=== PATIENT | female | born 1935 | race Caucasian/White ===

== ENCOUNTER 2019-01-25 13:33 | Emergency (ER) | payer OTHER, SELFPAY ==
[2019-01-25 13:37] VITALS: BP 122/62; PULSE 75; RESP 18; TEMP 36.3; O2SAT 97
--- NOTE | 2019-01-25 13:49 | DI.RAD.S_ITS ---
PROCEDURE: XR CHEST 1V INDICATIONS: chest pain TECHNIQUE: One view of the chest was acquired. COMPARISON: None. FINDINGS: Surgical changes and devices: None. Lungs and pleura: Lungs are clear. No pleural effusions or pneumothorax. Mediastinum: Mediastinal contours appear normal. Heart size is normal. Bones and chest wall: No suspicious bony lesions. Overlying soft tissues appear unremarkable. IMPRESSION: Mildly reduced inspiratory volume, no definite acute disease. Dictated by: Jan Zavala M.D. on 01/25/2019 at 14:06 Approved by: Jan Zavala M.D. on 01/25/2019 at 14:07
[2019-01-25 14:15] LABS: Add Manual Diff / Slide Review NO; Basophils Absolute Auto 100 /uL (0-100); Basophils Percent Auto 0.5 % (0-2); Eosinophils Absolute Auto 0 /uL (0-450); Eosinophils Percent Auto 0.3 % (2-4); Hematocrit 44.1 % (36-46); Hemoglobin 14.9 g/dL (12.0-16.0); Lymphocytes Absolute Auto 700 /uL (1100-4500); Lymphocytes Percent Auto 6.1 % (25-40); Mean Corpuscular HGB Conc 33.8 % (30-36); Mean Corpuscular Hemoglobin 29.5 PG (26-34); Mean Corpuscular Volume 87.2 fL (80-100); Monocytes Absolute Auto 800 /uL (0-900); Monocytes Percent Auto 7.1 % (3-14); Neutrophils Absolute Auto 10200 /uL (1500-7000); Platelet Count 256 X10^3/uL (150-400); Red Blood Cell Count 5.06 X10^6/uL (4.0-5.2); Red Cell Distribution Width 14.1 % (11.6-14.8); White Blood Cell Count 11.9 X10^3/uL (4.5-11.0)
[2019-01-25 14:24] LABS: INR 0.9 (0.9-1.3); Prothrombin Time 10.5 SECONDS (10.1-12.7)
--- NOTE | 2019-01-25 14:24 | DI.CT.S_ITS ---
PROCEDURE: CT CERVICAL SPINE WO CON INDICATIONS: syncopal episode, fell and hit head TECHNIQUE: Noncontrast 3 mm thick sections acquired from the skull base to the T4 level. Sagittal and coronal reformats were then constructed. For radiation dose reduction, the following was used: automated exposure control, adjustment of mA and/or kV according to patient size. COMPARISON: None. FINDINGS: Image quality: Excellent. Bones: No fractures or dislocations. Visualized superior ribs are intact. Moderate multilevel disc space narrowing is present at C5-6, C6-7, T2-3. Soft tissues: Prevertebral soft tissues are normal in thickness. No paravertebral hematomas. No apical pneumothoraces. IMPRESSION: Multilevel degenerative changes without fracture. Dictated by: Janay Gomez M.D. on 01/25/2019 at 14:47 Approved by: Janay Gomez M.D. on 01/25/2019 at 14:51
--- NOTE | 2019-01-25 14:24 | DI.CT.S_ITS ---
PROCEDURE: CT HEAD/BRAIN WO CON INDICATIONS: syncopal episode and fell and hit head TECHNIQUE: Noncontrast 4.5 mm thick angled axial sections acquired from the foramen magnum to the vertex, with coronal and sagittal reformats. For radiation dose reduction, the following was used: automated exposure control, adjustment of mA and/or kV according to patient size. COMPARISON: None. FINDINGS: Image quality: Mild motion is present. CSF spaces: Basal cisterns are patent. No extra-axial fluid collections. The ventricles are symmetric in size and shape. Brain: No intracranial bleeds or masses. There is cerebral volume loss for age, with resultant ventricular and sulcal prominence. There are periventricular and deep white matter chronic small vessel ischemic changes. There is intracranial internal carotid artery atherosclerosis. Skull and face: Calvarium and visualized facial bones appear intact, without suspicious lesions. Sinuses: Visualized sinuses and mastoids are clear. IMPRESSION: 1. No acute intracranial process. 2. Moderate atrophy and chronic microvascular ischemic changes. Dictated by: Janay Gomez M.D. on 01/25/2019 at 14:45 Approved by: Janay Gomez M.D. on 01/25/2019 at 14:47
[2019-01-25 14:26] LABS: PTT Partial Thromboplastin Tim 30 SECONDS (26.4-36.2)
[2019-01-25 14:31] LABS: Alanine Aminotransferase 20 IU/L (9-52); Albumin 4.1 g/dL (3.5-5.0); Albumin Globulin Ratio 1.2 (1.0-2.8); Alkaline Phosphatase 77 U/L (38-126); Aspartate Aminotransferase 34 IU/L (14-36); BUN Creatinine Ratio 26.7 (6-22); Bilirubin Total 0.5 mg/dL (0.2-1.3); Blood Urea Nitrogen 24 mg/dL (7-17); Calcium 9.7 mg/dL (8.4-10.2); Carbon Dioxide 28 mmol/L (22-32); Chloride 97 mmol/L (98-107); Creatine Kinase 53 U/L (30-135); Estimated Glomerular Filt Rate 59.7 mL/min (>60); Globulin 3.3 g/dL (1.7-4.1); Glucose 104 mg/dL (80-110); HEMOLYSIS < 15 (0-50); Lipase 255 U/L (23-300); Magnesium 1.9 mg/dL (1.6-2.3); Potassium 4.2 mmol/L (3.4-5.1); Sodium 135 mmol/L (137-145); Total Protein 7.4 g/dL (6.3-8.2)
[2019-01-25 14:41] LABS: Troponin I < 0.012 ng/mL (0.01-0.034)
[2019-01-25 14:44] VITALS: BP 124/65; PULSE 72; RESP 18; O2SAT 98
[2019-01-25 15:00] VITALS: BP 124/65; PULSE 70; RESP 14; O2SAT 99
[2019-01-25] MEDS: MAG HYDROX/ALUMINUM/SIMETH SUS 20 ML, LIDOCAINE VISCOUS 2% 15 ML PO (15:05)
--- NOTE | 2019-01-25 22:46 | ED_ITS ---
HPI - Syncope <ELBA Clark - Last Filed: 01/25/19 23:17> General Chief Complaint: Syncope Stated Complaint: Syncope Time Seen by Provider: 01/25/19 14:05 Source: patient and family Mode of arrival: EMS Limitations: no limitations History of Present Illness HPI narrative: This is a 83-year-old female, previous smoker and quit 2 weeks ago, brought in by EMS with status post witnessed syncopal episode at [facility]. Patient states prior to the syncopal episode, patient was nauseated and also felt like it having on diarrhea. Patient wanted to rest her head on a [employer] machine, and she found herself on the floor and woken by computer security coordinator. Patient thinks the syncopal episode was very brief as for a few seconds. Patient denies having chest pain, breathing difficulty, palpitation, dizziness prior to syncopal episode. Patient denies stool incontinence after the syncopal episode. Patient reports she had another syncopal episode in remote past when she had gastroenteritis with multiple nausea, vomiting, diarrhea. Patient reports she is feeling well at this point and denies weakness, headache, vision change, tingling/numbness to her limbs. Patient denies taking any anticoagulants or aspirin at this time. Related Data Home Medications Medication Instructions Recorded Confirmed enalapril maleate 10 mg PO DAILY 01/25/19 01/25/19 hydrochlorothiazide 25 mg PO DAILY 01/25/19 01/25/19 levothyroxine [Synthroid] 25 mcg PO DAILY 01/25/19 01/25/19 potassium 1 tab PO DAILY 01/25/19 01/25/19 rosuvastatin 20 mg PO QPM 01/25/19 01/25/19 Allergies Allergy/AdvReac Type Severity Reaction Status Date / Time No Known Drug Allergies Allergy Verified 01/25/19 14:24 Review of Systems <ELBA Clark - Last Filed: 01/25/19 23:17> Review of Systems Narrative: General: Denies fever, chills, fatigue, malaise, sweats. HEENT: Denies sinus pain, ear pain, sore throat, difficulty swallowing, dizziness. Respiratory: Denies dyspnea, cough, wheezing, hemoptysis, sputum. Cardiovascular: Denies chest pain, palpitations, orthopnea, edema. Gastrointestinal: See HPI : Denies dysuria, frequency, incontinence, hematuria, urinary retention. Musculoskeletal: Denies weakness, joint pain or bony pain. Skin: Denies rash, skin lesions, or other. Neurologic: Reports had a syncopal episode prior coming in to ED. Denies weakness, headache, numbness, change in speech, confusion, seizures, incoordination. Psychiatric: No concerning psychosocial issues. 12-point review of systems is negative except for those stated above. PFSH <ELBA Clark - Last Filed: 01/25/19 23:17> Social History (Updated 01/25/19 @ 22:58 by ELBA Clark) Smoking Status: Former smoker Exam <ELBA Clark - Last Filed: 01/25/19 23:17> Narrative Exam Narrative: GEN: Alert, oriented x 3, well appearing and nourished, and in no acute distress. Head: Normal cephalic, atraumatic. No scalp or temporal tenderness, step offs, crepitus, palpable mass or rash. EYES: Pupils are equal, round, and reactive to light and accommodation. Extraocular muscles are intact bilaterally. There is no subconjunctival hemorrhage, exudate and sclera non-icteric. ENT: Bilateral auditory canals and tympanic membranes clear, no hemotympanum. Hearing grossly intact. Nose without bleeding, purulent discharge or deviation. Facial sinuses nontender to palpate. Mucous membrane moist, no mucosal lesion. Throat without erythema, tonsillar hypertrophy or exudate. Uvula in midline, airway patent. Neck: Trachea in midline. No JVD, non-tender without lymphadenopathy, no step- offs. No masses or thyroid megaly. Supple, non-tender and no meningeal signs. CARDIAC: Normal regular rate and rhythm without murmurs, gallops, or rubs. No chest wall tenderness. No peripheral edema, cyanosis or pallor. Capillary refill is less than 2 seconds. RESPIRATORY: Lungs are cleat to auscultate bilaterally. No cough, wheezes, rales, or rhonchi. No stridor, respiratory distress, increase work of breathing, or accessary muscle used. ABD: Mild tenderness to palpate in mid abdomen. Abdomen soft and non- distended. No guarding or rebound tenderness to palpate. Bowel sounds are normal in all 4 quadrants. There is no palpable masses or organomegaly. EXT: Full painless ROM of all extremities with no loss of sensation, strength, effusion or edema. SKIN: Warm, dry, normal color for patient. No erythema, lesions or rash over visible areas. BACK: Nontender without deformity or crepitance. No flank tenderness. NEUROLOGICAL: Alert and oriented to place, time and person. Sensation and motor function intact bilaterally. No facial droops, dysphasia. CN II-XII intact. No ataxia noted. Speech clear. PSYCHIATRIC: Good judgement and reason, without hallucinations, abnormal affect or abnormal behaviors during the examination. Initial Vital Signs Initial Vital Signs: Vital Signs Temperature 97.3 F L 01/25/19 13:37 Pulse Rate 75 01/25/19 13:37 Respiratory Rate 18 01/25/19 13:37 Blood Pressure 122/62 01/25/19 13:37 Pulse Oximetry 97 01/25/19 13:37 <Milena Jackman DO - Last Filed: 01/26/19 07:36> Initial Vital Signs Initial Vital Signs: Vital Signs Temperature 97.3 F L 01/25/19 13:37 Pulse Rate 75 01/25/19 13:37 Respiratory Rate 18 01/25/19 13:37 Blood Pressure 122/62 01/25/19 13:37 Pulse Oximetry 97 01/25/19 13:37 Scores <ELBA Clark - Last Filed: 01/25/19 23:17> GCS Sri coma scale eye opening: Spontaneous [place] coma scale verbal response: Orientated Sri coma scale motor response: Obey commands Sri coma scale total score: 15 Nexus Score for C-Spine Focal Neurologic deficit present: No Midline spinal tenderness present: No Altered level of conciousness present: No Intoxication present: No Distracting Injury Present: No Nexus Criteria for C-spine: 0 NIH Stroke Scale Level of Conciousness: Alert, keenly responsive Ask month/age: Answers both questions correctly. Open/close eyes, close hand: Performs both tasks correctly Best gaze horizontal: Normal Visual [place]: No visual loss Facial palsy: Normal symetrical movement Left arm drift: No drift for full 10 sec Right arm drift: No drift for full 10 sec Left leg drift: No drift for full 10 sec Right leg drift: No drift for full 10 sec Limb ataxia: Absent Sensory on face/arms/legs: Normal, no sensory loss Best language: No aphasia, normal Dysarthria: Normal Extinction or inattention: No abnormality Total NIH Stroke scale score: 0 Citation:: [place] CT head injur/Trauma rule [address] head [address] due to the age. Course <ELBA Clark - Last Filed: 01/25/19 23:17> Orders Ordered: Discontinued Medications Al Hydrox/Mg Hydrox/Simethicone 20 ml/ Lidocaine HCl 15 ml 0 ml PO NOW ONE Stop: 01/25/19 14:45 Last Admin: 01/25/19 15:05 Dose: 35 ml Documented by: ARINA Al Hydrox/Mg Hydrox/Simethicone 20 ml/ Lidocaine HCl 15 ml 0 ml PO NOW ONE Stop: 01/25/19 15:01 Last Admin: 01/25/19 15:15 Dose: Not Given Documented by: ARINA Sodium Chloride (Normal Saline 0.9%) 1,000 mls @ 1,000 mls/hr IV BOLUS PRN PRN Reason: Fluid replacement Vital Signs Vital signs: Vital Signs - 8 hr 01/25/19 15:00 Pulse Rate 70 Respiratory Rate 14 Blood Pressure [Right Arm] 124/65 Pulse Oximetry 99 <Milena Jackman DO - Last Filed: 01/26/19 07:36> Orders Ordered: Discontinued Medications Al Hydrox/Mg Hydrox/Simethicone 20 ml/ Lidocaine HCl 15 ml 0 ml PO NOW ONE Stop: 01/25/19 14:45 Last Admin: 01/25/19 15:05 Dose: 35 ml Documented by: ARINA Al Hydrox/Mg Hydrox/Simethicone 20 ml/ Lidocaine HCl 15 ml 0 ml PO NOW ONE Stop: 01/25/19 15:01 Last Admin: 01/25/19 15:15 Dose: Not Given Documented by: DIMASCHEALEX Sodium Chloride (Normal Saline 0.9%) 1,000 mls @ 1,000 mls/hr IV BOLUS PRN PRN Reason: Fluid replacement Vital Signs Vital signs: Vital Signs - 8 hr 01/25/19 15:00 Pulse Rate 70 Respiratory Rate 14 Blood Pressure [Right Arm] 124/65 Pulse Oximetry 99 MDM - Syncope <ELBA Clark - Last Filed: 01/25/19 23:17> Differential Diagnosis Differential diagnosis: Likely vasovagal syncope, dehydration and other (Arrhythmia) Medical Records Attestation: I reviewed the patient's medical records. Lab Data Attestation: I reviewed the patient's lab results. Result diagrams: 01/25/19 14:10 01/25/19 14:10 Labs: Lab Results 01/25/19 01/25/19 01/25/19 Range/Units 14:10 14:10 14:10 WBC 11.9 H (4.5-11.0) X10^3/uL RBC 5.06 (4.0-5.2) X10^6/uL Hgb 14.9 (12.0-16.0) g/dL Hct 44.1 (36-46) % MCV 87.2 (80-100) fL MCH 29.5 (26-34) PG MCHC 33.8 (30-36) % RDW 14.1 (11.6-14.8) % Plt Count 256 (150-400) X10^3/uL Neut % (Auto) 86.0 H (50-75) % Lymph % (Auto) 6.1 L (25-40) % [place] % (Auto) 7.1 (3-14) % Eos % (Auto) 0.3 L (2-4) % Baso % (Auto) 0.5 (0-2) % Neut # (Auto) 92759 H (1173-7686) /uL Lymph # (Auto) 700 L (9851-9466) /uL [place] # (Auto) 800 (0-900) /uL Eos # (Auto) 0 (0-450) /uL Baso # (Auto) 100 (0-100) /uL PT 10.5 (10.1-12.7) SECONDS INR 0.9 (0.9-1.3) APTT 30 (26.4-36.2) SECONDS Sodium 135 L (137-145) mmol/L Potassium 4.2 (3.4-5.1) mmol/L Chloride 97 L (98-107) mmol/L Carbon Dioxide 28 (22-32) mmol/L BUN 24 H (7-17) mg/dL Creatinine 0.90 (0.52-1.04) mg/dL Estimated GFR 59.7 L (>60) mL/min BUN/Creatinine Ratio 26.7 H (6-22) Glucose 104 (80-110) mg/dL Calcium 9.7 (8.4-10.2) mg/dL Magnesium 1.9 (1.6-2.3) mg/dL Total Bilirubin 0.5 (0.2-1.3) mg/dL AST 34 (14-36) IU/L ALT 20 (9-52) IU/L Alkaline Phosphatase 77 (38-126) U/L Total Creatine Kinase 53 (30-135) U/L CK-MB (CK-2) TNP CK-MB (CK-2) Rel Index TNP Troponin I < 0.012 (0.01-0.034) ng/mL Total Protein 7.4 (6.3-8.2) g/dL Albumin 4.1 (3.5-5.0) g/dL Globulin 3.3 (1.7-4.1) g/dL Albumin/Globulin Ratio 1.2 (1.0-2.8) Lipase 255 (23-300) U/L Imaging Data CT scan - head: Radiologist's impression: [place] [address] CT Scan Report Signed Patient: Amy RobinsMR#: [id number] : 5Acct:[id number] Age/Sex: 83 / FDate of Service: 01/25/19 Loc: ED Accession Number: [id number] Procedure: CT head/brain wo con Ordering Provider: Sheng Brock PROCEDURE: CT HEAD/BRAIN WO CON INDICATIONS: syncopal episode and fell and hit head TECHNIQUE: Noncontrast 4.5 mm thick angled axial sections acquired from the foramen magnum to the vertex, with coronal and sagittal reformats. For radiation dose reduction, the following was used: automated exposure control, adjustment of mA and/or kV according to patient size. COMPARISON: None. FINDINGS: Image quality: Mild motion is present. CSF spaces: Basal cisterns are patent. No extra-axial fluid collections. The ventricles are symmetric in size and shape. Brain: No intracranial bleeds or masses. There is cerebral volume loss for age, with resultant ventricular and sulcal prominence. There are periventricular and deep white matter chronic small vessel ischemic changes. There is intracranial internal carotid artery atherosclerosis. Skull and face: Calvarium and visualized facial bones appear intact, without suspicious lesions. Sinuses: Visualized sinuses and mastoids are clear. IMPRESSION: 1. No acute intracranial process. 2. Moderate atrophy and chronic microvascular ischemic changes. Dictated by: Janay Gomez M.D. on 01/25/2019 at 14:45 Approved by: Janay Gomez M.D. on 01/25/2019 at 14:47 CT -Cervical spi: Radiologist's impression: [place] [address] CT Scan Report Signed Patient: Amy Robins#: [id number] : 5Acct:[id number] Age/Sex: 83 / FDate of Service: 01/25/19 Loc: ED Accession Number: [id number] Procedure: CT cervical spine wo con Ordering Provider: Sheng Brock PROCEDURE: CT CERVICAL SPINE WO CON INDICATIONS: syncopal episode, fell and hit head TECHNIQUE: Noncontrast 3 mm thick sections acquired from the skull base to the T4 level. Sagittal and coronal reformats were then constructed. For radiation dose reduction, the following was used: automated exposure control, adjustment of mA and/or kV according to patient size. COMPARISON: None. FINDINGS: Image quality: Excellent. Bones: No fractures or dislocations. Visualized superior ribs are intact. Moderate multilevel disc space narrowing is present at C5-6, C6-7, T2-3. Soft tissues: Prevertebral soft tissues are normal in thickness. No paravertebral hematomas. No apical pneumothoraces. IMPRESSION: Multilevel degenerative changes without fracture. Dictated by: Janay Gomez M.D. on 01/25/2019 at 14:47 Approved by: Janay Gomez M.D. on 01/25/2019 at 14:51 Chest x-ray: Radiologist's impression: [address] [address] XRay Report Signed Patient: Amy Robins#: [id number] : 5Acct:[id number] Age/Sex: 83 / FDate of Service: 01/25/19 Loc: ED Accession Number: [id number] Procedure: XR chest 1V Ordering Provider: Mank,Milena C D.O. PROCEDURE: XR CHEST 1V INDICATIONS: chest pain TECHNIQUE: One view of the chest was acquired. COMPARISON: None. FINDINGS: Surgical changes and devices: None. Lungs and pleura: Lungs are clear. No pleural effusions or pneumothorax. Mediastinum: Mediastinal contours appear normal. Heart size is normal. Bones and chest wall: No suspicious bony lesions. Overlying soft tissues appear unremarkable. IMPRESSION: Mildly reduced inspiratory volume, no definite acute disease. Dictated by: Jan Zavala M.D. on 01/25/2019 at 14:06 Approved by: Jan Zavala M.D. on 01/25/2019 at 14:07 ECG Data Attestation: I personally reviewed and interpreted this ECG as follows: Prior ECG tracings: not available for review Interpretation: Sinus rhythm rate at 67. Borderline left [place] deviation. No ST elevation or depression. MDM Narrative Medical decision making narrative: This patient is from [facility] and had unwitnessed a brief syncopal episode and fall on her head in [place]. She is not on anticoagulants at this time. Patient had nausea and the like having diarrhea prior to the syncopal episode. EKG was sinus rhythm rate at [address] depression or elevation. CT scan of head and neck was obtained due to patient's advanced age. Both tests were negative for acute findings. H&H was within normal limits. Sodium, chloride was mildly decreased. BUN was mildly elevated with normal creatinine. Patient denied having any breathing difficulty, chest pain in she did not have tachycardia to consider for PE. Cardiac enzyme troponin was negative. Patient received normal saline infusion of 500 mL prior DC to home. Patient reports mild abdominal discomfort and GI cocktail was provided and patient states improved symptoms. Patient reports feeling better and wished to go home. Return precautions were discussed with the patient and patient advised to follow up with her primary care physician when she returns to [facility]. Patient verbalized understanding and no further questions were expressed at this time. <Milena Jackman, DO - Last Filed: 01/26/19 07:36> Lab Data Labs: Lab Results 01/25/19 01/25/19 01/25/19 Range/Units 14:10 14:10 14:10 WBC 11.9 H (4.5-11.0) X10^3/uL RBC 5.06 (4.0-5.2) X10^6/uL Hgb 14.9 (12.0-16.0) g/dL Hct 44.1 (36-46) % MCV 87.2 (80-100) fL MCH 29.5 (26-34) PG MCHC 33.8 (30-36) % RDW 14.1 (11.6-14.8) % Plt Count 256 (150-400) X10^3/uL Neut % (Auto) 86.0 H (50-75) % Lymph % (Auto) 6.1 L (25-40) % [place] % (Auto) 7.1 (3-14) % Eos % (Auto) 0.3 L (2-4) % Baso % (Auto) 0.5 (0-2) % Neut # (Auto) 11798 H (3354-7976) /uL Lymph # (Auto) 700 L (8109-1123) /uL [place] # (Auto) 800 (0-900) /uL Eos # (Auto) 0 (0-450) /uL Baso # (Auto) 100 (0-100) /uL PT 10.5 (10.1-12.7) SECONDS INR 0.9 (0.9-1.3) APTT 30 (26.4-36.2) SECONDS Sodium 135 L (137-145) mmol/L Potassium 4.2 (3.4-5.1) mmol/L Chloride 97 L (98-107) mmol/L Carbon Dioxide 28 (22-32) mmol/L BUN 24 H (7-17) mg/dL Creatinine 0.90 (0.52-1.04) mg/dL Estimated GFR 59.7 L (>60) mL/min BUN/Creatinine Ratio 26.7 H (6-22) Glucose 104 (80-110) mg/dL Calcium 9.7 (8.4-10.2) mg/dL Magnesium 1.9 (1.6-2.3) mg/dL Total Bilirubin 0.5 (0.2-1.3) mg/dL AST 34 (14-36) IU/L ALT 20 (9-52) IU/L Alkaline Phosphatase 77 (38-126) U/L Total Creatine Kinase 53 (30-135) U/L CK-MB (CK-2) TNP CK-MB (CK-2) Rel Index TNP Troponin I < 0.012 (0.01-0.034) ng/mL Total Protein 7.4 (6.3-8.2) g/dL Albumin 4.1 (3.5-5.0) g/dL Globulin 3.3 (1.7-4.1) g/dL Albumin/Globulin Ratio 1.2 (1.0-2.8) Lipase 255 (23-300) U/L Discharge Plan Departure Patient Disposition: Home Clinical Impression: Vasovagal syncope, Dehydration Discharge Date/Time: 01/25/19 16:47 Instructions: DI for Syncope in Adults (Fainting) Activity Restrictions/Additional Instructions: You have been diagnosed with [syncope and passing out, mild dehydration. Accor ding to history, you might've had syncope from vasovagal and mild dehydration. Blood test shows mildly decreased kidney function. The head and c spine CT were without acute findings such as fracture ]. What to do: *Take your medications as directed. There is no new medication to go home with. Hydrate herself adequately. *Follow up with your primary care provider in 2-3 days, call for an appointment, when you return to . Let them know you were seen in the ED and that we asked you to be seen in follow up. *Return to ED if you have any new, worsening, or concerning symptoms, such as [ chest pain, breathing difficulty, dizziness, palpitation, fainting episodes, repeated vomiting, headache, tingling numbness to the limbs, or any acute findings]. Prescriptions: No Action enalapril maleate 10 mg Tablet 10 mg PO DAILY RF: 0 levothyroxine [Synthroid] 25 mcg Tablet 25 mcg PO DAILY RF: 0 hydrochlorothiazide 25 mg Tablet 25 mg PO DAILY RF: 0 rosuvastatin 20 mg Tablet 20 mg PO QPM RF: 0 potassium 1 tab PO DAILY RF: 0
== END 2019-01-25 16:47 | disposition home or self-care (01) ==
PROVIDERS: Emergency Medicine; Emergency Provider Nurse Practitioner Family
DX: R55 Syncope and collapse (principal); E86.0 Dehydration
CPT/HCPCS: 36415; 70450; 71045; 72125; 80053; 82550; 83690; 83735; 84484; 85025; 85610; 85730; 93005; 99283; 99285